=== PATIENT | female | born 1975 | race Caucasian/White ===

== ENCOUNTER 2017-08-13 09:58 | Day surgery (SDC) | payer OTHER ==
[2017-08-13] VITALS (11 sets, daily range): BP systolic 120–133; BP diastolic 72–84; PULSE 58–87; TEMP 97.5–98
[~2017-08-13] VITALS: Ht 160 cm; Wt 49.3 kg
[2017-08-13] MEDS ORDERED: NASONEX SPRAY17 GM NS (11:12)
[2017-08-13] MEDS ORDERED: ADDERALL15 MG PO (11:12)
[2017-08-13] MEDS ORDERED: CLARITIN 1010 MG/TAB PO (11:12)
[2017-08-13] MEDS ORDERED: LO LOESTRIN FE1 TAB PO (11:15)
[2017-08-13] MEDS ORDERED: MELATONIN5 M1 SL (11:16)
[2017-08-13] MEDS ORDERED: MOTRIN 800800 MG/TAB PO (12:01)
[2017-08-13] MEDS ORDERED: PERCOCET 325 MG1 TA2 PO (12:01)
== END 2017-08-13 21:15 | disposition home or self-care (01) ==
LOC: SDCO 09:58 → SURG 14:40 → SDCO 21:15
DX: N92.0 Excessive and frequent menstruation with regular cycle (principal); N94.6 Dysmenorrhea, unspecified; N94.89 Other specified conditions associated with female genital organs and menstrual cycle; N83.02 Follicular cyst of left ovary; N83.01 Follicular cyst of right ovary; N80.9 Endometriosis, unspecified; N73.6 Female pelvic peritoneal adhesions (postinfective); K90.0 Celiac disease; F90.9 Attention-deficit hyperactivity disorder, unspecified type
CPT/HCPCS: OP; A4314; J0360; J0690; J1100; J1885; J2250; J2270; J2704; J2710; J3010; J7120

== ENCOUNTER 2017-09-26 02:32 | Inpatient (IN) | payer OTHER ==
[~2017-09-26] VITALS: Ht 160 cm; Wt 50.0 kg
[2017-09-26] VITALS (11 sets, daily range): BP systolic 101–170; BP diastolic 72–95; PULSE 51–79; TEMP 96.8–98.1
[~2017-09-26 02:32] MED LIST: ADDERALL15 MG PO; CLARITIN 1010 MG/TAB PO; LO LOESTRIN FE1 TAB PO; MELATONIN5 M1 SL; MOTRIN 800800 MG/TAB PO; NASONEX SPRAY17 GM NS; PERCOCET 325 MG1 TA2 PO
[2017-09-26] MEDS ORDERED: ESTRACE0.5 MG PO (02:43)
[2017-09-26 04:15] LABS: BASO % 0.2 % (0.0-2.0); EOS % 0.1 % (0-4.0); GRAN # 12.7 (1.4-6.5); GRAN % 86.9 % (42.2-75.2); HEMATOCRIT 37.3 % (37.0-47.0); HEMOGLOBIN 12.5 g/dl (12.5-16.0); LYMPH # 1.2 (1.2-3.4); LYMPH % 8.4 % (20.0-51.0); MEAN CELL VOLUME 86 fl (80.0-100.0); MEAN CORPUSCULAR HEMOGLOBIN 29 pg (27.0-31.0); MEAN CORPUSCULAR HGB CONC 34 g/dl (33.0-37.0); MEAN PLATELET VOLUME 10.5 fl (7.4-10.4); MONO # 0.6 (0.1-0.6); MONO % 3.9 % (1.7-9.3); PLATELET COUNT 218 K/mm3 (130-400); RED BLOOD COUNT 4.32 M/mm3 (4.10-5.30); REDCELL DISTRIBUTION WIDTH-CV 12.5 % (11.5-14.5)
[2017-09-26 04:24] LABS: ALBUMIN 4.2 gm/dL (3.5-5.0); BILIRUBIN,TOTAL 0.6 mg/dL (0.0-1.0); CALCIUM 9.6 mg/dL (8.4-10.2); CREATININE, serum 0.59 mg/dL (0.52-1.25); POTASSIUM 3.6 mmol/L (3.4-5.0); TOTAL PROTEIN 7.9 gm/dL (6.4-8.2)
[2017-09-27 04:38] VITALS: BP 121/67; PULSE 51; TEMP 97.9
[2017-09-27 07:42] VITALS: BP 121/68; PULSE 97; TEMP 97.7
[2017-09-27 16:08] VITALS: BP 125/76; PULSE 62; TEMP 97.7
[2017-09-27 18:30] VITALS: BP 132/86; PULSE 66; TEMP 97.8
[2017-09-27 23:56] VITALS: BP 134/73; PULSE 65; TEMP 97.8
[2017-09-28 07:00] VITALS: BP 128/74; PULSE 53; TEMP 97.6
[2017-09-28] MEDS ORDERED: NORCO 325 MG-51 TAB PO (08:55)
[2017-09-28] MEDS ORDERED: IBU800 M1 PO (08:56)
== END 2017-09-28 10:35 | disposition home or self-care (01) | DRG 908 ==
LOC: COL.ER 02:32 → OB 04:36 → SDCO 04:36 → OB 07:35 → SDCO 07:36 → OB 07:37
PROVIDERS: Family Medicine; Obstetrics & Gynecology; Surgery
PROC: 0DNJ0ZZ Release Appendix, Open Approach (ICD-10-PCS; 2017-09-26)
PROC: 0DNN0ZZ Release Sigmoid Colon, Open Approach (ICD-10-PCS; 2017-09-26)
PROC: 0DTJ0ZZ Resection of Appendix, Open Approach (ICD-10-PCS; 2017-09-26)
PROC: 0UQG0ZZ Repair Vagina, Open Approach (ICD-10-PCS; principal; 2017-09-26 04:45)
PROC: 0JDB0ZZ Extraction of Perineum Subcutaneous Tissue and Fascia, Open Approach (ICD-10-PCS; 2017-09-26 04:45)
DX: T81.32XA Disruption of internal operation (surgical) wound, not elsewhere classified, initial encounter (principal); K56.51 Intestinal adhesions [bands], with partial obstruction; N81.5 Vaginal enterocele; K63.89 Other specified diseases of intestine
CPT/HCPCS: OP; A4314; J0330; J1100; J1170; J1885; J2250; J2270; J2405; J2543; J2704; J2710; J2795; J3010; J7050; J7120